=== PATIENT | female | born 1990 | race Caucasian/White ===

== ENCOUNTER 2021-12-04 07:40 | Inpatient (IN) ==
[2021-12-04] MEDS ORDERED: OXYTOCIN 30 UNITS/500 ML BAG IV PRN ×3 (07:51→18:44)
[2021-12-04] MEDS ORDERED: PENICILLIN G POTASSIUM 6 MU in DEXTROSE 5% 250 ML IV ONE (08:00)
--- NOTE | 2021-12-04 08:57 | History & Physical Report ---
Date of Service December 04, 2021 Assessment & Plan (1) Group B streptococcal infection during : (2) Supervision of normal intrauterine in multigravida: Plan 30 year old female at 40 1/7 1. Fetus: Cat 1 2. Labor: Induction with Pitocin 3. GBS +: penicillin ordered 4. Vitals: Normal Admission and Anticipated Discharge Date Admission Date: December 04, 2021 History of Present Illness Primary Care Provider: JONAH Washington Sandra is a 30 y/o female currently at 40 1/7 WGA with an BRITTANY 12/03/21 as determined by LMP who is here for induction. Her was complicated by GBS+. irregular contractions; + movement; no fluid loss; no bloody show External FHT and external uterine monitors used; Category 1 tracing; moderate FHT variability. Had regular appointments with OB. Labs: (05/29/21) Blood type: A+ Antibody screen: negative Hg: pending(today) Hct: pending (today) WBC: pending (today) Plt: pending (today) Rubella: Immune VDRL/RPR: Nonreactive Gonorrhea: neg Chlamydia: neg HIV: neg HbSAg: neg GBS: + Other screens: declines cfdna declines cf/sma Allergies Allergy/AdvReac Type Severity Reaction Status Date / Time latex Allergy Redness of Verified 12/03/21 13:15 Skin nickel Allergy Redness of Verified 12/03/21 13:15 Skin Home Medications Medication Instructions Recorded Confirmed Type ascorbic acid (vitamin C) 1 tab PO 04/10/21 12/03/21 History prenat.vits,yves,[id number] 1 tab PO DAILY 04/10/21 12/03/21 History cyanocobalamin (vitamin B-12) 5,000 mcg PO DAILY 04/24/21 12/03/21 History 5,000 mcg capsule vitamin B complex [B Complex Super] PO 04/24/21 12/03/21 History Patient History Medical History Anorexia "recovering" Anxiety Asthma rarely uses PRN inh Cardiac murmur as a child GERD (gastroesophageal reflux disease) History of migraine Psoriasis Smoker Surgical History No history of previous surgery Family History Grandfather (Maternal) Cancer Father Mental health disorder Mother Mental health disorder Family/Other Deep vein thrombosis Great-grandparent Other Breast cancer Colorectal cancer Depression Dyslipidemia Heart disease Hypertension Kidney disease No family history of adverse response to anesthesia Ovarian cancer Social History Smoking Status: Current every day smoker Cigarettes Per Day: .5 PACK PER DAY; Second Hand Exposure: Yes (as a child); Hx Alcohol Use: No Hx Substance Use: No Preferred Language: Yi Communication Ability: Effective 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 Beliefs That Will Affect Care: None marital status: Single marital status details: Lukas (32) [phone] Current Living Situation: Alone Current Living Situation Comment: LIVES WITH 8 YO SON BERNABE current occupational status: employed 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 Denies breast pain. Denies dysuria. Denies headache or changes in vision. Physical Exam Physical Exam: General: Alert, oriented. No acute distress. Cardiac: Regular rate and rhythm, no murmurs/rubs/gallops. Respiratory: Clear to auscultation bilaterally a/p, no wheezes/rales/rhonchi. No increased work of breathing. Symmetrical chest rise. No respiratory distress. Abdomen: Gravid Pelvic: Dilation 4 cm; Effacement 70; Station -[address] Alexandre Lower Extremities: No lower extremity edema or swelling. No deep calf pain. Sandoval's negative bilaterally Genitourinary: OB Exam Abdomen: + vertex, + estimated weight (6-7 pounds) and + irregular contractions OB Exam Monitor Tracing: + external FHT monitor used, + external uterine monitor used, + category I and + normal FHT variability Results & Data ([facility]) Vital Signs (Past 12 Hours) Vital Signs Temp Pulse Resp BP 12/04/21 07:59 36.7 C 20 12/04/21 07:54 36.7 C 67 20 143/88 H Supervising Physician Co-Signing Physician Notes Resident Physician Supervision Note: I interviewed and examined the patient. Discussed with Dr. Francisco and agree with findings and plan as documented in the note. Any exceptions or clarifications are listed here: [None] Documented By: Nae Wallace MD, FACOG Resident Activity Tracking Resident Involvement: Resident Care Provided Care Provided: OB Delivery (H&P)
[2021-12-04 08:59] LABS: Hematocrit (blood only) 32.9 % (34.1-44.9); Hemoglobin 10.5 g/dl (12.0-16.0); Mean Corpuscular Hemoglobin 26.4 pg (25.0-34.0); Mean Corpuscular Hgb Conc 31.9 g/dL (32.0-36.0); Mean Corpuscular Volume 82.7 fL (80.0-100.0); Mean Platelet Volume 10.9 fL (9.4-12.3); Platelet Count 263 K/uL (130-400); RDW Coefficient of Variation 14.9 % (11.5-14.5); RDW Standard Deviation 44.4 fL (36.4-46.3); Red Blood Count 3.98 M/uL (3.93-5.22); White Blood Count 9.75 K/ul (4.8-10.8)
[2021-12-04] MEDS: LACTATED RINGER'S 1,000 ML IV PRN ×2 (09:14→16:54)
[2021-12-04] MEDS: PENICILLIN G POTASSIUM 3 MU in DEXTROSE 5% 100 ML IV PRN ×2 (13:08→16:51)
[2021-12-04] MEDS ORDERED: BUTORPHANOL TARTRATE 1 MG/ML VIAL IV PRN (14:57)
[2021-12-04] MEDS ORDERED: SODIUM CHLORIDE 0.9% INJ 10 ML VIAL ONE (16:58)
[2021-12-04] MEDS ORDERED: fentaNYL citrate 100 MCG/2 ML VIAL ONE (16:58)
[2021-12-04] MEDS ORDERED: ePHEDrine sulfate 50 MG/ML AMP ONE (16:58)
[2021-12-04] MEDS ORDERED: fentaNYL 2MCG/ML ROPIVACAINE 1.25MG/ML 100 ML BAG EPI ONE (16:59)
[2021-12-04] MEDS ORDERED: BUPIVACAINE 0.25% 30 ML VIAL ONE (16:59)
[2021-12-04] MEDS ORDERED: LIDOCAINE 2%/EPINEPHRINE 1:200,000 20 ML SDV ONE (16:59)
[2021-12-04] MEDS ORDERED: NALOXONE HCL 1 MG in SODIUM CHLORIDE 0.9% 1000ML 1,000 ML IV PRN (17:03)
[2021-12-04] MEDS ORDERED: NALOXONE HCL 0.4 MG/1 ML VIAL/CARP IV PRN (17:03)
[2021-12-04] MEDS ORDERED: fentaNYL 2MCG/ML ROPIVACAINE 1.25MG/ML 100 ML BAG EPI PRN (17:03)
[2021-12-04] MEDS ORDERED: diphenhydrAMINE 50 MG/ML VIAL IV PRN (17:03)
[2021-12-04] MEDS ORDERED: NALBUPHINE HCL INJ 10 MG/ML AMP IV PRN (17:03)
[2021-12-04] MEDS ORDERED: ONDANSETRON INJ 2 MG/ML 2 ML VIAL IV PRN (17:03)
[2021-12-04] MEDS ORDERED: ePHEDrine sulfate 50 MG/ML AMP IV PRN (17:03)
--- NOTE | 2021-12-04 17:08 | Anesthesiology Consultation ---
Date of Service December 04, 2021 Assessment & Plan Chart Review Chart Review: Patient NOT seen in Pre Admission Testing and Acceptable Risk for Labor Epidural Consults Requested none ASA ASA2 Proposed Anesthesia Anesthesia Type: Labor Epidural and CSE Risk / Benefits Reviewed With: PT / POA / Parent / Guardian, Accepts Plan and Informed Consent Obtained History Height/Weight Height: 5 ft 6 in Weight: 78.471 kg Allergies Allergy/AdvReac Type Severity Reaction Status Date / Time latex Allergy Redness of Verified 12/03/21 13:15 Skin nickel Allergy Redness of Verified 12/03/21 13:15 Skin Medications Home Medications Medication Instructions Recorded Confirmed Last Taken ascorbic acid (vitamin C) 1 tab PO DAILY 04/10/21 12/04/21 12/04/21 05:00 prenat.vits,yves,[id number] 1 tab PO DAILY 04/10/21 12/04/21 12/04/21 05:00 cyanocobalamin (vitamin B-12) 5,000 mcg PO DAILY 04/24/21 12/04/21 12/04/21 05:00 5,000 mcg capsule vitamin B complex [B Complex Super] 1 tab PO DAILY 04/24/21 12/04/21 12/04/21 05:00 Active Medications Generic Name Dose Route Start Last Admin Trade Name Freq PRN Reason Stop Dose Admin Lactated Ringer's 1,000 mls @ 125 mls/hr 12/04/21 07:51 12/04/21 16:54 Lr IV 12/06/21 07:50 999 mls/hr .Q8H PRN Administration L&D Protocol Protocol Penicillin G Potassium 3 mu/ 106 mls @ 100 mls/hr 12/04/21 10:51 12/04/21 16:51 Dextrose IV 12/14/21 10:50 100 mls/hr Q4H PRN Administration GBS(+) Until Delivery Oxytocin 30 units in 500 mls @ 7 mls/hr 12/04/21 07:54 12/04/21 16:05 Pitocin IV 12/06/21 07:53 0.42 units/hr .Q24H PRN 7 mls/hr Labor Induction/Augmentation Titration Protocol 0.42 UNITS/HR NPO Date Last Intake of Fluids: 12/04/21 Time Last Intake of Fluids: 16:00 Date Last Intake of Solids: 12/04/21 Time Last Intake of Solids: 09:00 Past Medical History Medical History Anorexia "recovering" Anxiety Asthma rarely uses PRN inh Cardiac murmur as a child GERD (gastroesophageal reflux disease) History of migraine Psoriasis Smoker Exercise / Class Metabolic Activity II 4-5 Yardwork/Stairs/Walk up hill Past Family History Family History Grandfather (Maternal) Cancer Father Mental health disorder Mother Mental health disorder Family/Other Deep vein thrombosis Great-grandparent Other Breast cancer Colorectal cancer Depression Dyslipidemia Heart disease Hypertension Kidney disease No family history of adverse response to anesthesia Ovarian cancer Past Surgical History Surgical History No history of previous surgery Past Anesthesia History No Hx of Anesthesia Complications and No Family Hx of Anesthesia Complications History of PONV No Hx of PONV and No Hx of Motion Sickness Social History Smoking Status: Current every day smoker tobacco type: cigarettes Smoking cigarettes per day: .5 PACK PER DAY Hx Alcohol Use: No Hx Substance Use: No substance use type: does not use Review of Systems no chest pain or sob Physical Exam Vital Signs Last Vital Signs Temp 36.7 C 12/04/21 16:30 Pulse 72 12/04/21 17:06 Resp 18 12/04/21 16:30 BP 142/64 H 12/04/21 16:56 Pulse Ox 93 12/04/21 17:06 ENMT Mouth: no TMJ abnormality Thyromental Distance: > or= 3.5 Finger Breadths Mallampati Class: II Neck normal visual inspection Respiratory normal respiratory effort Auscultation: lungs clear to auscultation bilaterally Cardiovascular Rate/Rhythm: regular rate and regular rhythm Musculoskeletal Spine: normal cervical ROM Neurologic moves all extremities Psychiatric Orientation: alert and oriented x 3 Testing Laboratory Results 12/04/21 08:09
[2021-12-04] MEDS ORDERED: HYDROCORTISONE ACETATE 25 MG SUPP PR PRN (18:44)
[2021-12-04] MEDS ORDERED: BENZOCAINE 20% AER SPR 82.5 GM CAN EXT PRN (18:44)
[2021-12-04] MEDS ORDERED: ACETAMINOPHEN 325 MG TAB PO PRN (18:44)
[2021-12-04] MEDS ORDERED: bisacodyL 10 MG SUPP PR PRN (18:44)
[2021-12-04] MEDS ORDERED: oxyCODONE/ACETAMINOPHEN 5mg/325mg TAB PO PRN (18:44)
--- NOTE | 2021-12-04 18:57 | Delivery Summary ---
Vaginal Delivery Summary Date of Service December 04, 2021 Vaginal Delivery Summary VAVD Patient is a 3 para 1-0-1-1 female EDC of 12/03/2021 who presents for induction of labor because of postterm . Pitocin augmentation of her contractions was begun and membranes were ruptured at 6 cm dilated. She requested epidural analgesia which was moderately effective as she quickly went to full dilation following the epidural placement. There had been moderate variables prior to full dilation and discontinued as she was pushing. While the vertex was the heart rate dropped to 50 bpm and remained there over several minutes. Because of the bradycardia, a vacuum was placed on the vertex and through 1 contraction the 's head was delivered. The rest of the delivered easily. The cord had been wrapped around the infant's left thigh twice. After delivery the infant was placed on the mother's abdomen for further attention and drying. He was vigorous and crying. Perineum was intact. After 1 minute the cord was clamped and cut. The placenta was expressed intact with a three-vessel cord. bleeding was controlled with dilute Pitocin. Estimated blood loss was 200 cc. Mother and infant were doing well after delivery. [facility] Vaginal Delivery Charge Delivery Type Details: MARIANNE
--- NOTE | 2021-12-04 19:08 | Anesthesia Procedure Note ---
Date of Service December 04, 2021 Anesthesia Post Epidural Note Vital Signs Vital Signs: Temp Pulse Resp BP Pulse Ox 36.7 C 61 18 125/69 98 12/04/21 16:30 12/04/21 19:05 12/04/21 16:30 12/04/21 19:05 12/04/21 18:09 Notes Mental Status: alert / awake / arousable and participated in evaluation Nausea / Vomiting: adequately controlled Pain: adequately controlled Airway Patency, RR, SpO2: stable & adequate BP & HR: stable & adequate Hydration State: stable & adequate Neuraxial Anesthesia: was administered and sensory block is resolving Anesthetic Complications: no major complications apparent and Pt Satisfied with anesthetic care Epidural: Removed without complications and With tip intact
[2021-12-04] MEDS: DOCUSATE SODIUM 100 MG CAP PO SCH (21:38)
[2021-12-05] MEDS: IBUPROFEN 600 MG TAB PO PRN ×3 (04:12→13:31)
--- NOTE | 2021-12-05 05:44 | Obstetrical Progress Note ---
Date of Service <Mariama Francisco - Last Filed: 12/05/21 06:44> December 05, 2021 Assessment & Plan <Mariama Francisco DO - Last Filed: 12/05/21 06:44> (1) Status post vaginal delivery: continue OOB, ambulation, diet as tolerated <Nae Wallace MD, FACOG - Last Filed: 12/05/21 07:53> (1) Status post vaginal delivery: Subjective <Mariama Francisco - Last Filed: 12/05/21 06:44> Sandra is a 30 y/o female who is now PPD # 1 vaginal delivery at 40 1/7. Reports feeling well overall this morning. Mild abdominal cramping well managed on analgesics. Voiding. Tolerating meals overnight and able to ambulate some. Not passing gas and no bowel movements. Some persistent lochia with some improvement this morning. Breast feeding. Review of Systems Denies fever, chills, sweats Denies shortness of breath, difficulty breathing, chest pain, palpitations, chest pressure. Denies breast pain. Denies dysuria. Denies headache or changes in vision. Physical Exam <Mariama Francisco - Last Filed: 12/05/21 06:44> General: Alert, oriented. No acute distress. Cardiac: Regular rate and rhythm, no murmurs/rubs/gallops. Respiratory: Clear to auscultation bilaterally a/p, no wheezes/rales/rhonchi. No increased work of breathing. Symmetrical chest rise. No respiratory distress. Abdomen: Soft, nontender, nondistended. Bowel sounds present. Uterus: Uterine fundus firm, palpable 1 cm below umbilicus. Lower Extremities: No lower extremity edema or swelling. No deep calf pain. Sandoval's negative bilaterally. Results & Data ([facility]) <Mariama Francisco - Last Filed: 12/05/21 06:44> Vital Signs (Past 12 Hours) Temp Pulse Resp BP Pulse Ox O2 Del Method 36.8 C 62 16 139/76 98 12/05/21 04:05 12/05/21 04:05 12/05/21 04:05 12/05/21 04:05 12/05/21 04:05 12/05/21 04:05 <Nae Wallace MD, FACOG - Last Filed: 12/05/21 07:53> Co-Signing Physician Notes Resident Physician Supervision Note: I interviewed and examined the patient. Discussed with Dr. Francisco and agree with findings and plan as documented in the note. Any exceptions or clarifications are listed here: [None] Documented By: Nae Wallace MD, FACOG Resident Activity Tracking <Mariama Francisco, - Last Filed: 12/05/21 06:44> Resident Involvement: Resident Care Provided Care Provided: OB Delivery (Post )
[2021-12-05 07:04] LABS: Hematocrit (blood only) 30.1 % (34.1-44.9); Hemoglobin 9.8 g/dl (12.0-16.0); Mean Corpuscular Hemoglobin 26.3 pg (25.0-34.0); Mean Corpuscular Hgb Conc 32.6 g/dL (32.0-36.0); Mean Corpuscular Volume 80.9 fL (80.0-100.0); Mean Platelet Volume 11.1 fL (9.4-12.3); Platelet Count 241 K/uL (130-400); RDW Coefficient of Variation 14.8 % (11.5-14.5); RDW Standard Deviation 43.1 fL (36.4-46.3); Red Blood Count 3.72 M/uL (3.93-5.22); White Blood Count 13.46 K/ul (4.8-10.8)
[2021-12-05] MEDS ORDERED: PRENATAL VITAMIN 1 TAB PO SCH (08:00)
[2021-12-05] MEDS: DOCUSATE SODIUM 100 MG CAP PO SCH (08:40)
[2021-12-05] MEDS ORDERED: bisacodyL 5 MG TABEC PO SCH (20:00)
== END 2021-12-05 20:30 | disposition home or self-care (01) | DRG 807 ==
LOC: 4S1 07:40 → 4E2 21:13